=== PATIENT | male | born 1980 | race Caucasian/White ===

== ENCOUNTER 2020-07-10 14:18 | Emergency (ER) | payer OTHER, SELFPAY ==
--- NOTE | ~2020-07-10 | XR_ITS ---
EXAMINATION: XR hand LT min 3V DATE: 07/10/2020 19:43 INDICATION: Crush injury to the left second and third digits with swelling, bruising and lacerations TECHNIQUE: Posteroanterior, oblique and lateral views of the left hand were obtained. COMPARISON: None. FINDINGS: Minimally displaced transverse extra-articular fracture across the proximal metaphyseal region of the left third distal phalanx. Additional more subtle nondisplaced fracture extending bleakly across the tuft of the third distal phalanx. No other fractures identified. Joint spaces are normal. Soft tissu e swelling about the second and third digits. IMPRESSION: 1. Comminuted extra articular fracture of the left third distal phalanx. Reviewed, dictated and finalized at location A.
[2020-07-10 14:46] VITALS: BP 126/64; PULSE 86; RESP 16; TEMP 35.8; O2SAT 100
[2020-07-10 16:51] VITALS: BP 152/92; PULSE 93; O2SAT 100
[2020-07-10] MEDS: TETANUS,DIPHTHERIA,AC PERTUSSIS ADULT (0.5 ML) BOOSTRIX IM (19:46)
[2020-07-10] MEDS: HYDROcodone/acetaminophen (*CRX) 5-325 MG TABLET 1 TAB PO (19:46)
--- NOTE | 2020-07-10 20:21 | ED.UPPEXIN ---
HPI - Extremity Injury (Upper) General Chief Complaint: Extremity Injury, Upper Stated Complaint: finger laceration Time Seen by Provider: 07/10/20 18:50 Source: patient Mode of arrival: ambulatory Limitations: no limitations History of Present Illness HPI narrative: This is a 40 year old male that presents to the ER for crush injury to the hand sustained just prior to arrival. Reports injuries to his left 2nd and 3rd fingers with bruising and pain. Reports a laceration to the third finger. He is unsure of his last tetanus vaccine. Denies decreased ROM or numbness. Related Data Home Medications Medication Instructions Recorded Confirmed omeprazole 20 mg tablet,delayed 20 mg PO DAILY 11/12/19 release Allergies Allergy/AdvReac Type Severity Reaction Status Date / Time amoxicillin Allergy Unknown Verified 07/10/20 18:52 Review of Systems Review of Systems: Narrative: CONSTITUTIONAL: Denies fever SKIN: Reports laceration MUSCULOSKELETAL: Reports joint pain, and myalgia. NEUROLOGIC: Denies numbness All systems reviewed & are unremarkable except as noted in HPI and below PMFSH Past Medical History Medical History (Updated 07/10/20 @ 21:16 by Melany Cardoza PA-C) History of gastroesophageal reflux (GERD) History of hyperlipidemia History of hypertension Social History Social History Smoking status: Never smoker Alcohol intake: current Gender identity (if verbalized by the patient): Male Exam Narrative: Exam Narrative: GENERAL: Well-appearing, well-nourished, and in no acute distress. HEAD: Normocephalic, atraumatic. EYES: EOMI. EXTREMITIES: Normal range of motion. Left 2nd and 3rd fingers with mild bruising to the nailbeds with mild edema to the 3rd distal phalanx. Left 3rd finger with 1.5cm linear superficial laceration just proximal to the nail. Normal sensation SKIN: Warm, dry, no rash. NEURO: No focal deficits. Alert and oriented x3. PSYCH: Normal mood and affect Course Vital Signs Vital signs: Vital Signs Temperature 96.4 F L 07/10/20 14:46 Pulse Rate 86 07/10/20 14:46 Respiratory Rate 16 07/10/20 14:46 Blood Pressure 126/64 07/10/20 14:46 Pulse Oximetry 100 07/10/20 14:46 Temperature 96.4 F L 07/10/20 14:46 Pulse Rate 93 07/10/20 16:51 Respiratory Rate 16 07/10/20 14:46 Blood Pressure 152/92 H 07/10/20 16:51 Pulse Oximetry 100 07/10/20 16:51 Procedures Orthopedic Splinting/Casting Injury #1: Splinting/Casting Date: 07/10/20 Splinting/Casting Time: 21:11 Side: left Upper Extremity Injury Location: finger Upper Extremity Immobilizer: aluminum form splint Splint: prefabricated Pre-Formed: metal foam finger splint Pre-Procedure Neuro Vascular Exam: normal Post-Procedure Neuro Vascular Exam: normal MDM - Extremity Injury (Upper) MDM Narrative Medical decision making narrative: Patient presents the emergency department for crush injury to the left hand sustained just prior to arrival. Patient has superficial laceration to the left third distal phalanx. Also a comminuted extra-articular fracture of the left third distal phalanx. Superficial laceration was irrigated and bandaged. Patient placed in a finger splint. He was educated on wound care. He was given hand surgery for follow-up. He is stable and felt appropriate for the outpatient evaluation. He was given warnings to return to the ER Imaging Data Radiologist's impression: ITS Impressions Hand X-Ray 07/10/20 19:51 IMPRESSION: 1. Comminuted extra articular fracture of the left third distal phalanx. Critical Care Time Critical Care Time Critical Care Time: No Discharge Plan Discharge Clinical Impression: Fracture of distal phalanx of left middle finger Qualifiers: Encounter type: initial encounter Fracture type: closed Fracture alignment: nondisplaced Qual
== END 2020-07-10 21:31 | disposition home or self-care (01) ==
PROVIDERS: Emergency Provider Emergency Medicine; PCP Family Medicine
DX: S62.663A Nondisplaced fracture of distal phalanx of left middle finger, initial encounter for closed fracture (principal); S62.613A Displaced fracture of proximal phalanx of left middle finger, initial encounter for closed fracture; K21.9 Gastro-esophageal reflux disease without esophagitis; E78.5 Hyperlipidemia, unspecified; I10 Essential (primary) hypertension; Z23 Encounter for immunization; W24.0XXA Contact with lifting devices, not elsewhere classified, initial encounter
CPT/HCPCS: 29130; 73130; 90471; 90715; 99284; A9270

== ENCOUNTER 2023-11-29 08:30 | Outpatient (CLI) | payer OTHER, SELFPAY ==
[2023-11-29 09:10] LABS: Hemoglobin 14.6 g/dL (14.0-18.0); Mean Corpuscular HGB Conc 31.7 g/dl (32-36); Mean Corpuscular Hemoglobin 30.2 pg (26-34); Mean Corpuscular Volume 95.2 fl (80-100); Mean Platelet Volume 10.6 fl (7.4-10.4); Platelet Count Result 307 k/mm3 (150-375); Red Blood Count 4.83 M/mm3 (4.6-6.20); Red Cell Distribution Width 12.9 % (11.5-14.5); White Blood Count 8.4 K/mm3 (4.5-10.0)
[2023-11-29 09:20] LABS: Hemoglobin A1C 6.4 % (<5.7)
[2023-11-29 09:24] LABS: Alanine Aminotransferase 43 U/L (6-50); Albumin Level 4.7 g/dL (3.5-5.1); Alkaline Phosphatase 101 U/L (38-126); Anion Gap 7 mmol/L (8-16); Aspartate Amino Transferase 32 U/L (17-59); Bilirubin,Total 0.5 mg/dL (0.2-1.3); Blood Urea Nitrogen 12 mg/dL (9-20); Calcium 9.6 mg/dL (8.4-10.2); Carbon Dioxide 29 mmol/L (22-30); Chloride 102 mmol/L (98-107); Cholesterol 176 mg/dL (0-200); Estimated Glomerular Filt Rate > 60; Glucose 110 mg/dL (65-110); HDL Direct 46 mg/dL; Sodium 138 mmol/L (137-145); Triglycerides 148 mg/dL (<150)
[2023-11-29 09:35] LABS: LDL Cholesterol Direct 98 mg/dL
== END 2023-11-29 08:31 | disposition home or self-care (01) ==
LOC: ANHLAB 08:34
PROVIDERS: PCP Family Medicine; Visit Provider Family Medicine
DX: Z00.00 Encounter for general adult medical examination without abnormal findings (principal); E66.9 Obesity, unspecified; E78.5 Hyperlipidemia, unspecified; I10 Essential (primary) hypertension; R73.03 Prediabetes; Z12.5 Encounter for screening for malignant neoplasm of prostate; Z13.29 Encounter for screening for other suspected endocrine disorder
CPT/HCPCS: 36415; 80053; 80061; 83036; 84153; 84443; 85027; G0103

== ENCOUNTER 2024-06-05 07:32 | Outpatient (CLI) | payer OTHER, SELFPAY ==
[2024-06-05 09:23] LABS: Creatinine Urine 234.2 mg/dL
[2024-06-05 09:28] LABS: MALB Creatinine Ratio 10.9 mg/g (0-30); Microalbumin Urine Random 25.5 mg/L (0-16.7)
[2024-06-05 10:31] LABS: Hemoglobin A1C 6.4 % (<5.7)
[2024-06-05 12:41] LABS: Alanine Aminotransferase 34 U/L (6-50); Albumin Level 4.5 g/dL (3.5-5.1); Alkaline Phosphatase 90 U/L (38-126); Anion Gap 11 mmol/L (4-12); Aspartate Amino Transferase 28 U/L (17-59); Bilirubin,Total 0.4 mg/dL (0.2-1.3); Blood Urea Nitrogen 14 mg/dL (9-20); Calcium 9.4 mg/dL (8.4-10.2); Carbon Dioxide 26 mmol/L (22-30); Chloride 102 mmol/L (98-107); Cholesterol 175 mg/dL (0-200); Estimated Glomerular Filt Rate > 60; Glucose 116 mg/dL (65-110); HDL Direct 43 mg/dL; Potassium 4.2 mmol/L (3.4-5.0); Sodium 139 mmol/L (137-145); Triglycerides 148 mg/dL (<150)
[2024-06-05 12:52] LABS: LDL Cholesterol Direct 98 mg/dL
== END 2024-06-05 07:33 | disposition home or self-care (01) ==
LOC: ANHLAB 07:34
PROVIDERS: PCP Family Medicine; Visit Provider Nurse Practitioner
DX: E11.9 Type 2 diabetes mellitus without complications (principal); E78.5 Hyperlipidemia, unspecified
CPT/HCPCS: 36415; 80053; 80061; 82043; 83036

== ENCOUNTER 2024-12-25 08:50 | Outpatient (CLI) | payer OTHER, SELFPAY ==
[2024-12-25 09:19] LABS: Hematocrit 41.8 % (42.0-52.0); Hemoglobin 13.5 g/dL (14.0-18.0); Mean Corpuscular HGB Conc 32.3 g/dl (32-36); Mean Corpuscular Hemoglobin 30.8 pg (26-34); Mean Corpuscular Volume 95.2 fl (80-100); Mean Platelet Volume 10.1 fl (7.4-10.4); Platelet Count Result 304 k/mm3 (150-375); Red Blood Count 4.39 M/mm3 (4.6-6.20); White Blood Count 7.9 K/mm3 (4.5-10.0)
[2024-12-25 09:33] LABS: Alanine Aminotransferase 34 U/L (6-50); Albumin Level 4.4 g/dL (3.5-5.1); Alkaline Phosphatase 93 U/L (38-126); Anion Gap 8 mmol/L (4-12); Aspartate Amino Transferase 25 U/L (17-59); Bilirubin,Total 0.5 mg/dL (0.2-1.3); Blood Urea Nitrogen 14 mg/dL (9-20); Calcium 9.1 mg/dL (8.4-10.2); Carbon Dioxide 29 mmol/L (22-30); Chloride 103 mmol/L (98-107); Cholesterol 151 mg/dL (0-200); Estimated Glomerular Filt Rate > 60; Glucose 117 mg/dL (65-110); HDL Direct 40 mg/dL; Potassium 3.9 mmol/L (3.4-5.0); Sodium 140 mmol/L (137-145); Triglycerides 153 mg/dL (<150)
[2024-12-25 09:42] LABS: Hemoglobin A1C 6.5 % (<5.7)
[2024-12-25 09:44] LABS: LDL Cholesterol Direct 75 mg/dL
[2024-12-25 10:14] LABS: Creatinine Urine 141.4 mg/dL
[2024-12-25 10:18] LABS: MALB Creatinine Ratio 14.6 mg/g (0-30); Microalbumin Urine Random 20.6 mg/L (0-16.7)
== END 2024-12-25 08:51 | disposition home or self-care (01) ==
LOC: ANHLAB 08:52
PROVIDERS: PCP Family Medicine; Visit Provider Nurse Practitioner
DX: Z00.00 Encounter for general adult medical examination without abnormal findings (principal); E11.9 Type 2 diabetes mellitus without complications
CPT/HCPCS: 36415; 80053; 80061; 82043; 83036; 84443; 85027

== ENCOUNTER 2025-04-30 09:21 | Outpatient (CLI) | payer OTHER, SELFPAY ==
[2025-04-30 09:45] LABS: Hematocrit 42.0 % (42.0-52.0); Hemoglobin 13.5 g/dL (14.0-18.0); Mean Corpuscular HGB Conc 32.1 g/dl (32-36); Mean Corpuscular Hemoglobin 30.7 pg (26-34); Mean Corpuscular Volume 95.5 fl (80-100); Platelet Count Result 272 k/mm3 (150-375); Red Blood Count 4.40 M/mm3 (4.6-6.20); White Blood Count 8.4 K/mm3 (4.5-10.0)
[2025-04-30 10:21] LABS: Alanine Aminotransferase 35 U/L (6-50); Albumin Level 4.3 g/dL (3.5-5.1); Alkaline Phosphatase 76 U/L (38-126); Anion Gap 9 mmol/L (4-12); Aspartate Amino Transferase 26 U/L (17-59); Bilirubin,Total 0.4 mg/dL (0.2-1.3); Blood Urea Nitrogen 15 mg/dL (9-20); Calcium 9.2 mg/dL (8.4-10.2); Carbon Dioxide 26 mmol/L (22-30); Chloride 104 mmol/L (98-107); Cholesterol 159 mg/dL (0-200); Estimated Glomerular Filt Rate > 60; Glucose 122 mg/dL (65-110); HDL Direct 40 mg/dL; Potassium 4.1 mmol/L (3.4-5.0); Sodium 139 mmol/L (137-145); Total Protein 7.5 g/dL (6.3-8.2); Triglycerides 162 mg/dL (<150)
[2025-04-30 10:33] LABS: Hemoglobin A1C 6.9 % (<5.7)
== END 2025-04-30 09:22 | disposition home or self-care (01) ==
LOC: ANHLAB 09:23
PROVIDERS: PCP Family Medicine; Visit Provider Nurse Practitioner
DX: D64.9 Anemia, unspecified (principal); E78.5 Hyperlipidemia, unspecified; E11.9 Type 2 diabetes mellitus without complications
CPT/HCPCS: 36415; 80053; 80061; 83036; 85027

== ENCOUNTER 2025-09-09 09:01 | Outpatient (CLI) | payer OTHER, SELFPAY ==
[2025-09-09 09:18] LABS: Hematocrit 43.4 % (42.0-52.0); Hemoglobin 14.2 g/dL (14.0-18.0); Mean Corpuscular HGB Conc 32.7 g/dl (32-36); Mean Corpuscular Hemoglobin 31.1 pg (26-34); Mean Corpuscular Volume 95.0 fl (80-100); Platelet Count Result 294 k/mm3 (150-375); Red Blood Count 4.57 M/mm3 (4.6-6.20); White Blood Count 8.5 K/mm3 (4.5-10.0)
[2025-09-09 09:39] LABS: Alanine Aminotransferase 56 U/L (6-50); Albumin Level 4.7 g/dL (3.5-5.1); Alkaline Phosphatase 85 U/L (38-126); Anion Gap 11 mmol/L (4-12); Aspartate Amino Transferase 38 U/L (17-59); Bilirubin,Total 0.6 mg/dL (0.2-1.3); Blood Urea Nitrogen 16 mg/dL (9-20); Calcium 9.4 mg/dL (8.4-10.2); Carbon Dioxide 26 mmol/L (22-30); Chloride 103 mmol/L (98-107); Cholesterol 169 mg/dL (0-200); Estimated Glomerular Filt Rate > 60; Glucose 125 mg/dL (65-110); HDL Direct 43 mg/dL; Potassium 4.3 mmol/L (3.4-5.0); Sodium 140 mmol/L (137-145); Total Protein 8.1 g/dL (6.3-8.2); Triglycerides 142 mg/dL (<150)
[2025-09-09 09:53] LABS: MALB Creatinine Ratio 26.7 mg/g (0-30)
[2025-09-09 12:10] LABS: Hemoglobin A1C 7.1 % (<5.7)
== END 2025-09-09 09:02 | disposition home or self-care (01) ==
PROVIDERS: PCP Family Medicine; Visit Provider Nurse Practitioner
DX: D64.9 Anemia, unspecified (principal); E78.5 Hyperlipidemia, unspecified; E11.9 Type 2 diabetes mellitus without complications
CPT/HCPCS: 36415; 80053; 80061; 82043; 83036; 85027